=== PATIENT | male | born 1990 | race Two or more races ===

== ENCOUNTER 2020-02-03 12:23 | Emergency (ER) | payer SELFPAY ==
[~2020-02-03] VITALS: Ht 177.8 cm; Wt 108.0 kg
[2020-02-03 12:35] VITALS: BP 116/88
[2020-02-03] MEDS ORDERED: KETOROLAC TROMETH 60MG/2ML VIAL IM ONE (14:15)
== END 2020-02-03 14:29 | disposition home or self-care (01) ==
LOC: ER 12:23
DX: S83.511A Sprain of anterior cruciate ligament of right knee, initial encounter (principal); F17.210 Nicotine dependence, cigarettes, uncomplicated; X58.XXXA Exposure to other specified factors, initial encounter; Y93.89 Activity, other specified; Y92.89 Other specified places as the place of occurrence of the external cause; Y99.8 Other external cause status
CPT/HCPCS: 73562; 96372; 99283; J1885

== ENCOUNTER 2022-09-13 19:27 | Emergency (ER) | payer SELFPAY ==
[~2022-09-13] VITALS: Ht 180.3 cm; Wt 101.0 kg
[~2022-09-13 19:27] MED LIST: AMOX250C3 PO; HYDR-4798 PO
[2022-09-14] MEDS ORDERED: IBUP800T27 PO (02:39)
[2022-09-14] MEDS ORDERED: CEPH-510 PO (02:39)
[2022-09-14 03:30] VITALS: BP 118/76
== END 2022-09-14 03:45 | disposition home or self-care (01) ==
LOC: ER 19:27
DX: S61.412A Laceration without foreign body of left hand, initial encounter (principal); Z79.899 Other long term (current) drug therapy; Z88.6 Allergy status to analgesic agent; W01.0XXA Fall on same level from slipping, tripping and stumbling without subsequent striking against object, initial encounter; Y93.89 Activity, other specified; Y92.89 Other specified places as the place of occurrence of the external cause; Y99.8 Other external cause status
CPT/HCPCS: 12001

== ENCOUNTER 2023-06-06 22:14 | Emergency (ER) | payer MEDICAID ==
[~2023-06-06] VITALS: Ht 177.8 cm; Wt 101.1 kg
[~2023-06-06 22:14] MED LIST changes: +CEPH-510 PO; +IBUP-1456 PO
[2023-06-06] MEDS ORDERED: KETOROLAC TROMETH 60MG/2ML VIAL IM ONE (23:30)
[2023-06-06] MEDS ORDERED: DIPH2.5T73 PO (23:31)
[2023-06-06] MEDS ORDERED: IBUP-1456 PO (23:31)
[2023-06-06 23:59] VITALS: BP 124/91; PULSE 116; RESP 20; TEMP 100.3; O2SAT 97
== END 2023-06-06 23:59 | disposition home or self-care (01) ==
LOC: ER 22:14
DX: B34.9 Viral infection, unspecified (principal); Z79.899 Other long term (current) drug therapy
CPT/HCPCS: 96372; 99283; J1885

== ENCOUNTER 2023-08-04 08:55 | Emergency (ER) | payer MEDICAID ==
[~2023-08-04] VITALS: Ht 177.8 cm; Wt 99.7 kg
[~2023-08-04 08:55] MED LIST changes: +DIPH2.5T73 PO
[2023-08-04 09:15] LABS: Basophils # (auto) 0.1 10 ^3/uL (0-0.2); Basophils % (auto) 1.2 % (0.0-2.0); Eosinophils # (auto) 0 10 ^3/uL (0-0.8); Eosinophils % (auto) 0.4 % (0.0-7.0); Hematocrit 48.4 % (41.0-53.0); Hemoglobin 16.7 g/dL (13.5-17.5); Lymphocytes # (auto) 1.8 10 ^3/uL (0.4-5.4); Lymphocytes % (auto) 18.5 % (10.0-50.0); Mean Corpuscular Hemoglobin 31.7 pg (28.0-32.0); Mean Corpuscular Hgb Conc. 34.6 g/dL (32.0-36.0); Mean Corpuscular Volume 91.6 fL (80.0-100.0); Monocytes # (auto) 0.7 10 ^3/uL (0-1.3); Neutrophils # (auto) 7.1 10 ^3/uL (1.6-8.6); Neutrophils % (auto) 72.9 % (37.0-80.0); Nucleated Red Blood Cells % 0.1 %; Red Blood Cells 5.28 10^6/uL (4.5-5.90); Red Cell Distribution Width 12.7 % (11.8-14.3); White Blood Cell 9.7 10^3/uL (4.4-10.8)
[2023-08-04 09:33] LABS: Alanine Aminotransferase 119 U/L (7-40); Albumin 4.6 g/dL (3.2-4.8); Alkaline Phosphatase 64 U/L (46-116); Anion Gap 6 (5-15); Aspartate Aminotransferase 64 U/L (13-40); BUN/Creatinine Ratio 12.6 (10.0-20.0); Bilirubin, Total 1.3 mg/dL (0.2-1.0); Blood Urea Nitrogen 11 mg/dL (9-23); Carbon Dioxide 26 mmol/L (20-30); Chloride 108 mmol/L (98-107); Glucose 119 mg/dL (74-106); Magnesium 1.9 mg/dL (1.6-2.6); Potassium 3.7 mmol/L (3.5-5.1); Sodium 140 mmol/L (136-145); Total Protein 7.5 g/dL (5.7-8.2)
[2023-08-04 11:44] VITALS: BP 124/73; RESP 15; TEMP 98.8; O2SAT 95
[2023-08-04 11:48] VITALS: PULSE 65
[2023-08-04 11:52] VITALS: PULSE 70
[2023-08-04] MEDS ORDERED: CHL25C GT (11:52)
== END 2023-08-04 12:31 | disposition home or self-care (01) ==
LOC: ER 08:55
DX: R07.89 Other chest pain (principal); F10.10 Alcohol abuse, uncomplicated; Z79.1 Long term (current) use of non-steroidal anti-inflammatories (NSAID); Z79.2 Long term (current) use of antibiotics; Z79.899 Other long term (current) drug therapy; Y90.9 Presence of alcohol in blood, level not specified
CPT/HCPCS: 36415; 71045; 80053; 83690; 83735; 83880; 84484; 85025; 93005